=== PATIENT | male | born 1965 | race Native Hawaiian/Other Pacific Islander ===

== ENCOUNTER 2019-03-15 10:00 | Emergency (ER) | payer OTHER ==
[~2019-03-15] VITALS: Ht 172.7 cm; Wt 104.3 kg
[2019-03-15 10:38] VITALS: TEMP 99.5
[2019-03-15 10:45] LABS: PLATELET COUNT 227 K/uL (142-355)
[2019-03-15 10:46] LABS: POTASSIUM 2.8 mmol/L (3.6-5.2); SODIUM 140 mmol/L (136-145)
[2019-03-15 10:48] LABS: PARTIAL THROMBOPLASTIN TIME 19.6 SECONDS (24.5-33.6)
== END 2019-03-15 20:40 | disposition expired ==
LOC: EDBD 10:00 → ED 10:00
PROVIDERS: Family Medicine
PROC: 0T9B70Z Drainage of Bladder with Drainage Device, Via Natural or Artificial Opening (ICD-10-PCS; principal; 2019-03-15)
DX: I46.9 Cardiac arrest, cause unspecified (principal)
CPT/HCPCS: 31500; 36415; 51702; 80053; 80307; 80320; 81000; 82550; 82805; 83880; 84484; 85027; 85379; 85610; 85730; 92950; 96360; 96361; 96365; 96375; 96376; 99291; J0171; J1265; J1940; J3490